=== PATIENT | female | born 1965 | race Caucasian/White ===

== ENCOUNTER 2018-01-28 21:10 | Emergency (ER) | payer OTHER ==
[~2018-01-28] VITALS: Ht 165.1 cm; Wt 79.4 kg
[~2018-01-28 21:10] MED LIST: COLACE100 MG PO; HYDROCODON-ACE1 EAC7 PO; IBUPROFEN 600600 M1 PO; IRON159 MG PO; LEVOXYL88 MCG PO; MECLIZINE HCL25 M1 PO; SYNTHROID50 MCG PO
[2018-01-28] MEDS ORDERED: PROZAC10 MG PO (21:51)
[2018-01-28] MEDS ORDERED: ESTRADIOL 1 MG T1 M1 PO (21:52)
[2018-01-28] MEDS ORDERED: CRUTCHES MISCELL (22:52)
== END 2018-01-29 00:06 | disposition home or self-care (01) ==
LOC: ER 21:10
DX: S82.492A Other fracture of shaft of left fibula, initial encounter for closed fracture (principal); S92.355A Nondisplaced fracture of fifth metatarsal bone, left foot, initial encounter for closed fracture; E03.9 Hypothyroidism, unspecified; Z86.2 Personal history of diseases of the blood and blood-forming organs and certain disorders involving the immune mechanism; Z88.0 Allergy status to penicillin; W10.8XXA Fall (on) (from) other stairs and steps, initial encounter; Y93.89 Activity, other specified; Y92.89 Other specified places as the place of occurrence of the external cause; Y99.8 Other external cause status

== ENCOUNTER → 2018-10-04 | Outpatient (CLI) | payer OTHER ==
[~2018-10-04] MED LIST changes: +CRUTCHES MISCELL; +ESTRADIOL 1 MG T1 M1 PO; +PROZAC10 MG PO
== END ==
LOC: RAD 14:29
DX: Z12.31 Encounter for screening mammogram for malignant neoplasm of breast (principal)

== ENCOUNTER 2019-11-06 18:32 | Emergency (ER) | payer OTHER ==
[~2019-11-06] VITALS: Ht 165.1 cm; Wt 81.7 kg
[2019-11-06] MEDS ORDERED: TAMIFLU75 MG PO (19:21)
[2019-11-06] MEDS ORDERED: TESSALON PERLE100 MG PO (19:21)
[2019-11-06 19:45] VITALS: BP 136/84
== END 2019-11-06 19:30 | disposition home or self-care (01) ==
LOC: ER 18:32
DX: J11.1 Influenza due to unidentified influenza virus with other respiratory manifestations (principal); E03.9 Hypothyroidism, unspecified; Z86.2 Personal history of diseases of the blood and blood-forming organs and certain disorders involving the immune mechanism; Z88.0 Allergy status to penicillin

== ENCOUNTER 2019-12-31 15:01 | Emergency (ER) | payer OTHER ==
[~2019-12-31] VITALS: Ht 165.1 cm; Wt 79.4 kg
[~2019-12-31 15:01] MED LIST changes: +TAMIFLU75 MG PO; +TESSALON PERLE100 MG PO
[2019-12-31] MEDS ORDERED: NAPROSYN500 MG PO (17:45)
[2019-12-31] MEDS ORDERED: NORCO 5-325 TA1 EAC1 PO (17:55)
[2019-12-31 18:42] VITALS: BP 138/87
== END 2019-12-31 17:40 | disposition home or self-care (01) ==
LOC: ER 15:01
DX: S62.122A Displaced fracture of lunate [semilunar], left wrist, initial encounter for closed fracture (principal); S62.111A Displaced fracture of triquetrum [cuneiform] bone, right wrist, initial encounter for closed fracture; S00.83XA Contusion of other part of head, initial encounter; S60.512A Abrasion of left hand, initial encounter; S00.531A Contusion of lip, initial encounter; S02.2XXA Fracture of nasal bones, initial encounter for closed fracture; S00.03XA Contusion of scalp, initial encounter; E03.9 Hypothyroidism, unspecified; F32.9 Major depressive disorder, single episode, unspecified; Z79.899 Other long term (current) drug therapy; Z88.0 Allergy status to penicillin; W18.09XA Striking against other object with subsequent fall, initial encounter; Y93.01 Activity, walking, marching and hiking; Y92.480 Sidewalk as the place of occurrence of the external cause; Y99.8 Other external cause status; Z90.710 Acquired absence of both cervix and uterus

== ENCOUNTER → 2020-07-14 | Outpatient (CLI) | payer OTHER ==
[~2020-07-14] MED LIST changes: +NAPROSYN500 MG PO; +NORCO 5-325 TA1 EAC1 PO
[2020-07-14 13:18] LABS: HEMATOCRIT 37.8 % (37.0-47.0); HEMOGLOBIN 12.5 gm/dL (12.0-15.0); MCH 30.1 pg (26.0-34.0); MCV 91.2 fL (80.0-100.0); RBC 4.15 mil/uL (4.20-5.00); RDW 18.3 % (10.5-14.5); WBC 7.5 thou/uL (4.0-11.0)
[2020-07-14 13:46] LABS: ALBUMIN 4.3 g/dL (3.4-5.0); ANION GAP 6 mmol/L (7-16); BUN 23 mg/dL (7-18); CALCIUM 9.3 mg/dL (8.5-10.1); CHLORIDE 103 mmol/L (98-107); CHOLESTEROL 177 mg/dL (<200); CO2 31 mmol/L (21-32); CREATININE 0.9 mg/dL (0.6-1.0); GLUCOSE 82 mg/dL (74-106); HDL CHOLESTEROL 56 mg/dL (>40); LDL CHOLESTEROL 102 mg/dL (<100); POTASSIUM 3.9 mmol/L (3.5-5.1); SGOT 13 U/L (15-37); SGPT 22 U/L (30-65); SODIUM 140 mmol/L (136-145); TC:HDL 3.2 Ratio (Not establshd); TOTAL BILIRUBIN 0.4 mg/dL (0.2-1.0); TOTAL PROTEIN 8.1 g/dL (6.4-8.2); TRIGLYCERIDE 96 mg/dL (<150); VLDL 19 mg/dL (<40)
[2020-07-15 01:06] LABS: GLYCOHEMOGLOBIN (HGB A1C) 5.5 % (4.8-5.6)
== END ==
LOC: LAB 12:06
PROVIDERS: ATTEND Obstetrics & Gynecology
DX: Z01.419 Encounter for gynecological examination (general) (routine) without abnormal findings (principal)

== ENCOUNTER → 2020-07-14 | Outpatient (CLI) | payer OTHER | LOC: RAD 12:56 | PROVIDERS: ATTEND Obstetrics & Gynecology | DX: Z12.31 Encounter for screening mammogram for malignant neoplasm of breast (principal) ==

== ENCOUNTER → 2021-07-22 | Outpatient (CLI) | payer OTHER ==
[~2021-07-22] MED LIST changes: +BACTRIM DS TAB1 EACH PO
== END ==
LOC: BC 13:40
PROVIDERS: ATTEND Obstetrics & Gynecology
DX: Z12.31 Encounter for screening mammogram for malignant neoplasm of breast (principal); N64.89 Other specified disorders of breast

== ENCOUNTER → 2021-08-05 | Outpatient (CLI) | payer OTHER ==
[2021-08-05 11:07] LABS: ABSOLUTE NEUTROPHILS 7.1 thou/uL (1.4-8.2); BASOPHILS 1.4 % (0.0-2.0); EOSINOPHILS 1.2 % (0.0-3.0); HEMATOCRIT 36.8 % (37.0-47.0); HEMOGLOBIN 11.9 gm/dL (12.0-15.0); LYMPHOCYTES 20.6 % (24.0-44.0); MCH 30.1 pg (26.0-34.0); MCHC 32.3 g/dL (28.0-37.0); MCV 93.3 fL (80.0-100.0); MONOCYTES 6.8 % (1.0-8.0); PLATELET COUNT 149 thou/uL (150-400); RBC 3.95 mil/uL (4.20-5.00); RDW 22.1 % (10.5-14.5); WBC 10.2 thou/uL (4.0-11.0)
[2021-08-05 11:16] LABS: ALBUMIN 3.7 g/dL (3.4-5.0); ANION GAP 5 mmol/L (7-16); BUN 18 mg/dL (7-18); CALCIUM 8.9 mg/dL (8.5-10.1); CHLORIDE 109 mmol/L (98-107); CHOLESTEROL 193 mg/dL (<200); CO2 31 mmol/L (21-32); CREATININE 0.8 mg/dL (0.6-1.0); GLUCOSE 89 mg/dL (74-106); HDL CHOLESTEROL 58 mg/dL (>40); LDL CHOLESTEROL 117 mg/dL (<100); POTASSIUM 4.5 mmol/L (3.5-5.1); SGOT 16 U/L (15-37); SGPT 23 U/L (30-65); SODIUM 145 mmol/L (136-145); TC:HDL 3.3 Ratio (Not establshd); TOTAL BILIRUBIN 0.3 mg/dL (0.2-1.0); TRIGLYCERIDE 90 mg/dL (<150); VLDL 18 mg/dL (<40)
[2021-08-05 13:51] LABS: ANISOCYTOSIS 3+; HYPOCHROMASIA 1+
[2021-08-06 00:06] LABS: GLYCOHEMOGLOBIN (HGB A1C) 5.6 % (4.8-5.6)
== END ==
LOC: LAB 09:39
PROVIDERS: ATTEND Obstetrics & Gynecology
DX: Z01.411 Encounter for gynecological examination (general) (routine) with abnormal findings (principal)

== ENCOUNTER → 2021-09-15 | Outpatient (CLI) | payer OTHER ==
[2021-09-15 15:52] LABS: APTT 28.2 Seconds (24.5-32.8); INR 0.99; PROTIME 10.8 Seconds (10.5-12.1)
[2021-09-15 15:58] LABS: ABSOLUTE NEUTROPHILS 7.1 thou/uL (1.4-8.2); BASOPHILS 1.3 % (0.0-2.0); EOSINOPHILS 1.1 % (0.0-3.0); HEMATOCRIT 36.6 % (37.0-47.0); HEMOGLOBIN 11.8 gm/dL (12.0-15.0); LYMPHOCYTES 22.5 % (24.0-44.0); MCHC 32.2 g/dL (28.0-37.0); MCV 93.3 fL (80.0-100.0); MONOCYTES 7.2 % (1.0-8.0); PLATELET COUNT 145 thou/uL (150-400); POLYS 67.9 % (36.0-66.0); RBC 3.93 mil/uL (4.20-5.00); RDW 22.4 % (10.5-14.5); WBC 10.5 thou/uL (4.0-11.0)
[2021-09-15 17:38] LABS: ANISOCYTOSIS 1+
== END ==
LOC: LAB 13:47
PROVIDERS: ATTEND Family Medicine
DX: D69.6 Thrombocytopenia, unspecified (principal); E55.9 Vitamin D deficiency, unspecified

== ENCOUNTER → 2021-11-14 | Outpatient (CLI) | payer OTHER | LOC: MRI 10:04 | PROVIDERS: ATTEND Nurse Practitioner | DX: H90.5 Unspecified sensorineural hearing loss (principal) ==